=== PATIENT | female | born 1945 | race Caucasian/White ===

== ENCOUNTER 2025-03-04 09:14 | Outpatient (AMB) | payer MEDICARE, OTHER, SELFPAY ==
--- NOTE | 2025-03-04 09:15 | MHC.PC.OV ---
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 Accompanied by: Spouse Allergies venlafaxine (From Effexor) Adverse Reaction (Severe, Verified 03/04/25 08:24) qt prolongation codeine Adverse Reaction (Intermediate, Verified 03/04/25 09:17) increased energy fluoxetine Adverse Reaction (Intermediate, Verified 03/04/25 08:24) leg weakness prednisone Adverse Reaction (Intermediate, Verified 03/04/25 08:25) Rash lisinopril Adverse Reaction (Unknown, Verified 03/04/25 08:24) Unknown Medication List - Last Reconciled 03/04/25 by Yudi Woodruff MD cefpodoxime 200 mg PO BID hydrochlorothiazide 25 mg PO DAILY lorazepam 0.5 mg PO DAILY PRN losartan 25 mg PO DAILY losartan 50 mg PO DAILY omeprazole 20 mg PO DAILY PRN Tobacco use date assessed: 03/04/25 Fall risk assessment: No Falls in past year Last assessed Fall Risk: 03/04/25 Dental Screening Dental Screen Date: 03/04/25 Did you have a dental visit in the last 12 months?: Yes Did you have a dental problem in the last 6 months where you did not have access to dental care?: No Was dental information given to patient?: Patient has dentist HPI HPI Comments History of Present Illness Details The patient is an 79 year old individual presenting to [facility] and for follow-up on multiple medical issues. Hypertension: The patient has a history of hypertension, BP has been elevated for about a month. Current medications include losartan and hydrochlorothiazide, which the patient has been taking all at the same time in the morning. Home blood pressure readings have ranged from the 130s to 160s systolic and 80s to 90s diastolic, with one diastolic reading as high as 102. Stress is noted as a possible trigger for blood pressure spikes. The patient's carotid arteries were checked due to a blood pressure discrepancy between arms and ultrasound was normal. Urinary Tract Infection: The patient was diagnosed with a urinary tract infection at an urgent care center and has been taking cefpodoxime for two days. Symptoms included a change in urine from clear to extremely cloudy, chills with urination on two occasions, increased urinary frequency, and a sensation of incomplete bladder emptying. The patient denies any vaginal discharge. Blood was reportedly found in the urine during the urgent care visit. Thoracic mass: The patient has a mass in the middle of the chest . 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 Sees Dr. Garcia at [facility]. Anxiety: The patient reports using lorazepam more frequently recently due to stress. The last prescription fill was in August, as the patient does not take it daily. Benign Lump: The patient had a lump on the left side checked, which was determined to be fatty tissue and not a concern. This was in the same area where the patient was experiencing pulling and spasms. Social History: - Alcohol Use: The patient denies any alcohol consumption. - Diet: The patient reports drinking a lot of soda, loves butter, and does not drink much water. - Stress: The patient reports significant stress related to worrying about - Exercise: The patient exercises very little and experiences leg cramps with increased activity like doing laundry. [facility] Medical History (Updated 03/04/25 @ 18:03 by Yudi Woodruff MD) Murmur Iron deficiency anemia UTI (urinary tract infection) ARIEL (obstructive sleep apnea) Generalized anxiety disorder Skin cancer Mediastinal mass Impaired fasting glucose Primary hypertension Surgical History (Updated 03/04/25 @ 08:23 by Yudi Woodruff MD) S/P hernia surgery Hx of tonsillectomy History of cholecystectomy Social History Housing: Apartment Patient Tobacco Use Status: Former Tobacco user Years Smoked: 20 years e-Cigarette/Vaping Use: Never Used Current occupational status: retired Questionnaire AUDIT C Alcohol Use Questionnaire (AUDIT-C) 1. How often do you have a drink containing alcohol?: Never 3. How often do you have six or more drinks on one occasion?: Never Total Score: 0 Review of Systems Narrative Review of Systems - Constitutional: Reports feeling tired and sluggish. - Cardiovascular: Denies shortness of breath. - Respiratory: Denies shortness of breath. - Gastrointestinal: Denies heartburn or reflux symptoms. - Genitourinary: Reports cloudy urine, chills with urination, urinary frequency, and a sense of incomplete bladder emptying. - Musculoskeletal: per hpi - Psychiatric: Reports increased anxiety and stress. Physical exam (Primary Care) Vital Signs: Last Vital Signs Temp 96.8 F 03/04/25 09:21 Pulse 68 03/04/25 09:21 Resp 16 03/04/25 09:21 BP 98/60 03/04/25 09:21 Pulse Ox 96 03/04/25 09:21 Oxygen Delivery Method Room Air 03/04/25 09:21 BMI result Body Mass Index 35.7 Tobacco/Smoking Status: Tobacco use Status Tobacco use date assessed 03/04/25 03/04/25 09:27 Patient Tobacco Use Status Former Tobacco user 03/04/25 09:27 e-Cigarette/Vaping Use Never Used 03/04/25 09:27 Narrative Physical Exam - Vitals: Blood pressure is 102/62 mmHg on repeat - HEENT: Ears are clear bilaterally. - Throat: Oropharynx is clear. - Cardiovascular: A soft murmur is audible. - Pulmonary: Lungs are clear to auscultation bilaterally, with no wheezing. - Extremities: Mild edema noted in ankles. Coding Level of Care Code Est Pt Level 4 (10875) Complex visit Add On G2211 Diagnoses Primary hypertension I10 Acute cystitis with hematuria N30.01 Urinary tract infection type: acute cystitis Hematuria presence: with hematuria Impaired fasting glucose R73.01 Generalized anxiety disorder F41.1 Assessment & Plan Assessment & Plan (1) Primary hypertension: Code(s): I10 - Essential (primary) hypertension Category: Medical (2) UTI (urinary tract infection): Code(s): N39.0 - Urinary tract infection, site not specified Category: Medical Qualifiers: Urinary tract infection type: acute cystitis Hematuria presence: with hematuria Qualified Code(s): N30.01 - Acute cystitis with hematuria (3) Impaired fasting glucose: Code(s): R73.01 - Impaired fasting glucose Category: Medical (4) Generalized anxiety disorder: Code(s): F41.1 - Generalized anxiety disorder Category: Medical Plan Assessment and Plan 1. Hypertension - Plan is to adjust medication timing to losartan 25 mg and HCTZ 25 mg in the morning, and losartan 50 mg in the afternoon. - The patient will continue home BP monitoring and report back next week. - Labs for electrolytes and renal function will be checked today. - The patient was also counseled on consuming protein with morning medications. 2. Heart Murmur - A soft murmur was noted on exam. - An echocardiogram will be ordered - A stress test may be considered based on echo results due labile BP and risk factors. 3. Urinary Tract Infection with Hematuria - The patient is currently on cefpodoxime for a UTI diagnosed at an urgent care. - Hematuria was also noted. - The plan is to complete the antibiotic course, and then obtain a repeat urinalysis and urine culture in two weeks to ensure resolution. - If hematuria persists, a referral to urology will be made. - The patient was advised to increase hydration. 4. Anxiety - The patient reports increased stress and use of as-needed lorazepam. - A refill for lorazepam will be provided. - The patient declined a referral to therapy at this time but was informed the option remains available. 5. Thoracic Mass - The patient has an incidental mediastinal mass being followed by thoracic surgery. - The plan is to continue with the scheduled follow-up in May to monitor for any changes. 6. Peripheral Edema - Mild edema is noted on exam. - The patient was counseled on dietary modifications, including reducing salt, soda, and butter intake. 7. Health Maintenance - Labs including an A1c, CBC, iron panel, and thyroid studies will be checked today to screen for diabetes and evaluate for causes of sluggishness. - The patient will continue with dermatology follow-ups. - Follow up in 3 months Plan - Adjusting blood pressure regimen to Hydrochlorothiazide 25 mg and Losartan 25 mg in the morning, and Losartan 50 mg in the afternoon. - The patient will continue to monitor blood pressure at home twice daily. - A prescription for Lorazepam will be sent to [facility] for as-needed use for anxiety. - Labs to be drawn today include a BMP, A1c, CBC, iron panel, and thyroid tests. - Patient to obtain a repeat urinalysis and urine culture in two weeks to confirm resolution of UTI and hematuria. - An echocardiogram will be ordered to evaluate heart murmur in light of recent elevated BP episodes - Patient counseled on lifestyle modifications including increasing water intake, reducing salt, soda, and butter, and having protein with breakfast. - The patient will follow up via phone in 10 days or sooner to report blood pressure readings. Discussion Notes We reviewed the patient's elevated home blood pressure readings and the recent low reading in the office. I explained the rationale for splitting the blood pressure medications, with the hydrochlorothiazide and a portion of the losartan in the morning and the remainder of the losartan in the afternoon, to prevent sharp drops in blood pressure. I emphasized the importance of taking the morning dose with protein. We also addressed the patient's increased anxiety and stress, and I provided a refill for lorazepam for as-needed use. I offered a referral for therapy, which the patient declined at this time, but I encouraged the patient to keep it in mind as an option. Extensive counseling was provided on lifestyle modifications, including increasing water intake and reducing dietary sodium, sugar from soda, and butter. The patient agreed to the plan, including lab work today, a phone call follow-up in 10 days with blood pressure readings, and an in-office appointment in three months. Patient Instructions - Take your Hydrochlorothiazide 25 mg pill and half of a Losartan 50 mg pill in the morning with breakfast. - Take one full Losartan 50 mg pill in the afternoon, around lunchtime. - Make sure to eat something with protein for breakfast, such as a boiled egg, when you take your morning pills. - Check your blood pressure two times a day (in the morning and evening) while you are sitting and resting, and write down the numbers. - Drink more water, aiming for three 16-ounce bottles per day. - Cut back on drinking soda and using a lot of salt and butter. - Finish all of your antibiotic pills for the urinary tract infection. - In two weeks, go to the lab at [address] [facility] to provide a urine sample. - Someone from the cardiology department will call you to schedule an echocardiogram appointment. Orders: Orders Urine Culture Today N39.0 - Urinary tract infection, site not specified Hemoglobin A1c Today D50.9 - Iron deficiency anemia, unspecified, F41.1 - Generalized anxiety disorder, I10 - Essential (primary) hypertension, R73.01 - Impaired fasting glucose Complete Blood Count Auto Diff Today D50.9 - Iron deficiency anemia, unspecified, F41.1 - Generalized anxiety disorder, I10 - Essential (primary) hypertension, R73.01 - Impaired fasting glucose Comprehensive Met. Panel Today D50.9 - Iron deficiency anemia, unspecified, F41.1 - Generalized anxiety disorder, I10 - Essential (primary) hypertension, R73.01 - Impaired fasting glucose TSH reflex Free T4 Today D50.9 - Iron deficiency anemia, unspecified, F41.1 - Generalized anxiety disorder, I10 - Essential (primary) hypertension, R73.01 - Impaired fasting glucose IRON PROFILE Today D50.9 - Iron deficiency anemia, unspecified, F41.1 - Generalized anxiety disorder, I10 - Essential (primary) hypertension, R73.01 - Impaired fasting glucose Ferritin Today D50.9 - Iron deficiency anemia, unspecified, F41.1 - Generalized anxiety disorder, I10 - Essential (primary) hypertension, R73.01 - Impaired fasting glucose CA echo transthoracic complete Today I10 - Essential (primary) hypertension, R01.1 - Cardiac murmur, unspecified, R60.9 - Edema, unspecified UA and rflx microscopic 2 Weeks N39.0 - Urinary tract infection, site not specified Microalbumin, Random (w Creat) Today D50.9 - Iron deficiency anemia, unspecified, F41.1 - Generalized anxiety disorder, I10 - Essential (primary) hypertension, R73.01 - Impaired fasting glucose Medications: New lorazepam 0.5 mg PO DAILY PRN 30 tabs 5RF anxiety losartan 75 mg (1.5 x 50 mg) PO DAILY 135 tabs 3RF Patient Instructions: Take hydrochlorothiazide 25mg once daily in the morning and take 1/2 tab losartan 50mg, take one tab 50mg losartan in the afternoon with lunch. Ensure you hydrate and have good protein intake. Call with update on March 15 with blood pressure, call before if any issues arise we will also book an appointment for you to get an echocardiogram Get repeat urine culture and urinalysis in 2 weeks at [address] [facility]
[2025-03-04 09:21] VITALS: BP 98/60; PULSE 68; RESP 16; TEMP 36; O2SAT 96; BMI 35.7
== END 2025-03-04 10:45 | disposition home or self-care (01) ==
LOC: HO.HMCHD 09:14
PROVIDERS: PCP Internal Medicine; Visit Provider Internal Medicine
DX: I10 Essential (primary) hypertension (principal); N30.01 Acute cystitis with hematuria; R73.01 Impaired fasting glucose; F41.1 Generalized anxiety disorder

== ENCOUNTER → 2025-03-04 09:14 | Outpatient (BNVA) | payer OTHER, MEDICARE, SELFPAY | PROVIDERS: PCP Internal Medicine; Visit Provider Internal Medicine | DX: R01.1 Cardiac murmur, unspecified (principal); R60.9 Edema, unspecified; I10 Essential (primary) hypertension; N30.01 Acute cystitis with hematuria; R22.2 Localized swelling, mass and lump, trunk; F41.9 Anxiety disorder, unspecified; D50.9 Iron deficiency anemia, unspecified; R73.01 Impaired fasting glucose; Z87.891 Personal history of nicotine dependence | CPT/HCPCS: 99212 ==

== ENCOUNTER 2025-03-04 10:48 | Outpatient (REF) | payer OTHER, MEDICARE, SELFPAY ==
[2025-03-04 13:59] LABS: MANUAL DIFF FLAG NO
[2025-03-04 14:16] LABS: Hematocrit 43.8 % (37.0-47.0); Hemoglobin 15.3 g/dl (12.0-16.0); Imm Gran Abs Auto 0.04 X10*3/uL (0.00-0.03); Imm Gran Pct Auto 0.5 % (0.0-0.4); Lymphocytes Absolute Auto 1.8 X10*3/uL (1.2-4.9); Mean Corpuscular HGB Conc 34.9 g/dl (31.0-35.0); Mean Corpuscular Hemoglobin 32.5 pg (27.0-33.0); Mean Corpuscular Volume 93.0 fL (80.0-98.0); NRBC Abs Auto 0.000 X10*3/uL (0.0-0.012); NRBC Pct Auto 0.0 /100WBC (0.0-0.2); Platelet Count 225 X10*3/uL (160-400); Red Blood Count 4.71 X10*6/uL (4.20-5.50); White Blood Count 7.4 X10*3/uL (4.8-10.8)
[2025-03-04 14:44] LABS: Microalbum/Creatinine Ratio Ur 8.7 ug/mg cr (<30)
[2025-03-04 14:57] LABS: Albumin Level 4.4 g/dL (3.5-5.0); Alkaline Phosphatase 82 U/L (39-117); Anion Gap 9 (12-20); Aspartate Amino Transferase 39 U/L (5-31); Blood Urea Nitrogen 17 mg/dL (9-16); Calcium 10.1 mg/dL (8.4-10.2); Carbon Dioxide 30 mmol/L (22-29); Chloride 107 mmol/L (96-108); Estimated Glomerular Filt Rate 52; Iron 146 mcg/dL (30-160); Percent Iron Saturation 51 % (15-50); Potassium 4.0 mmol/L (3.3-5.1); Sodium 142 mmol/L (135-145); Total Iron Binding Capacity 287 mcg/dL (228-428); Total Protein 7.5 g/dL (6.5-8.0); Unsaturated Iron Binding 141 ug/dL
[2025-03-04 15:06] LABS: Ferritin 632 ng/mL (10-250)
[2025-03-04 15:27] LABS: Alanine Aminotransferase 50 U/L (0-31)
== END 2025-03-04 10:49 | disposition home or self-care (01) ==
LOC: HO.10HDL 10:48
PROVIDERS: Visit Provider Internal Medicine
DX: R73.01 Impaired fasting glucose (principal); F41.1 Generalized anxiety disorder; I10 Essential (primary) hypertension; D50.9 Iron deficiency anemia, unspecified; N39.0 Urinary tract infection, site not specified
CPT/HCPCS: 36415; 80053; 82043; 82570; 82728; 83036; 83540; 84443; 85025; 87086